=== PATIENT | male | born 1975 ===

== ENCOUNTER 2016-08-09 16:37 | Emergency (ER) | payer BC ==
[2016-08-09 17:00] VITALS: BP 143/82; PULSE 89; TEMP 98; O2SAT 98
--- NOTE | 2016-08-09 17:15 | C.PDOC ---
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 felt like he was anxious and came to ED for a evaluation. Patient currently denies chest pain, SOB, nausea, vomiting, headache or dizziness. 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 Cardiovascular: Negative for: Chest Pain Respiratory: Negative for: Shortness of Breath Gastrointestinal: Negative for: Nausea, Vomiting Neurological: Negative for: Headache, Dizziness Physical Exam - Physical Exam Appears: Non-toxic, No Acute Distress Skin: Warm, Dry Head: Atraumatic, Normacephalic Oral Mucosa: Moist Chest: Symmetrical, No Tenderness Cardiovascular: Rhythm Regular, No Murmur Respiratory: Normal Breath Sounds, No Rales, No Rhonchi, No Stridor, No Wheezing Extremity: Normal ROM, No Swelling Neurological/Psych: Oriented x3, Normal Speech, Normal Motor ED Course And Treatment ECG: Interpreted By Ga ECG Rhythm: Sinus Rhythm ECG Interpretation: No Acute Changes Interpretation Of ECG: No ST/T wave changes. Rate From EC (BPM) O2 Sat by Pulse Oximetry: 98 (RA) Progress Note: Patient denies any blood work or any sort of work up. Medical Decision Making Medical Decision Making: cp s/p "argument" in ICU with loved one. on arrival, pt symptoms free, refusing eval, requsting to be d/c to return with loved. one in ICU Disposition - Disposition Disposition: HOME/ ROUTINE Disposition Time: 18:12 Condition: STABLE Additional Instructions: return to er with worsening symptoms or concerns. Instructions: Chest Pain (ED) - Clinical Impression Clinical Impression: Chest pain - Scribe Statement The provider has reviewed the documentation as recorded by the Angelicaibe Radha Ortiz Provider Attestation: All medical record entries made by the Angelicaibe were at my direction and personally dictated by me. I have reviewed the chart and agree that the record accurately reflects my personal performance of the history, physical exam, medical decision making, and the department course for this patient. I have also personally directed, reviewed, and agree with the discharge instructions and disposition.
[2016-08-09 17:42] VITALS: RESP 18
== END 2016-08-09 17:42 | disposition home or self-care (01) ==
LOC: C.ER 16:37
DX: R07.9 Chest pain, unspecified (principal)

== ENCOUNTER 2017-02-21 19:03 | Emergency (ER) | payer BC ==
[2017-02-21 19:16] VITALS: TEMP 98.2
[2017-02-21] MEDS ORDERED: Lidocaine 2% Inj (20ml) INFIL ONE (19:40)
[2017-02-21] MEDS ORDERED: Bacitracin 500 Units/gm Oint Foilpak UD TOP ONE (19:40)
--- NOTE | 2017-02-21 19:56 | C.PDOC ---
History Of Present Illness 41 y/o male presents to ED for evaluation of cut to 5th right finger sustained this morning. Patient states he was changing his car tire and karla feel cutting his 5th right digit. Patient denies loc, numbness, tingling, other injuries or any other complaints at this time. Time Seen by Provider: 02/21/17 19:36 Chief Complaint (Nursing): Abnormal Skin Integrity History Per: Patient History/Exam Limitations: no limitations Onset/Duration Of Symptoms: Hrs Current Symptoms Are (Timing): Still Present Location Of Injury: Right: Hand Quality Of Symptoms: Painful Past Medical History Reviewed: Historical Data, Nursing Documentation, Vital Signs Vital Signs: Last Vital Signs Temp 98.2 F 02/21/17 19:14 Pulse 65 02/21/17 20:41 Resp 18 02/21/17 20:41 BP 122/72 02/21/17 20:41 Pulse Ox 98 02/21/17 20:41 - Medical History PMH: No Chronic Diseases Surgical History: No Surg Hx Family History: States: No Known Family Hx - Social History Hx Alcohol Use: Yes Hx Substance Use: No - Immunization History Hx Tetanus Toxoid Vaccination: Yes Hx Influenza Vaccination: No Hx Pneumococcal Vaccination: No Review Of Systems Except As Marked, All Systems Reviewed And Found Negative. Musculoskeletal: Positive for: Hand Pain Physical Exam - Physical Exam Appears: Non-toxic, No Acute Distress Skin: Warm, Dry, No Rash Head: Atraumatic, Normacephalic Eye(s): bilateral: Normal Inspection Oral Mucosa: Moist Neck: Normal ROM, Supple Chest: Symmetrical Extremity: Normal ROM, Capillary Refill (<2 seconds), No Deformity, Other (2cm L -shaped lac to distal volar of 5th right finger) Pulses: Left Radial: Normal, Right Radial: Normal Neurological/Psych: Oriented x3, Normal Motor, Normal Sensation ED Course And Treatment O2 Sat by Pulse Oximetry: 100 (RA) Pulse Ox Interpretation: Normal Laceration - Laceration Repair finger laceration Wound Length (In cm): 2 Description Of Wound: Irregular Wound Cleansed With: Betadine, Sterile Saline Anesthesia: Lidocaine 2% Wound Examination: Irrigated With Saline, No FB With Wound Exploration, No Tendon Injury With Wound Exploration Wound Closure: Suture Suture Technique And Material Used: Nylon Wound Complexity: Simple Medical Decision Making Medical Decision Making: Tetanus is up to date. Wound is cleansed with pressurized saline and betadine. Finger splint placed to the finger after suturing. Disposition - Disposition Referrals: [facility] [Outside] Disposition: HOME/ ROUTINE Disposition Time: 20:41 Condition: GOOD Additional Instructions: keep the wound clean dry and covered. Wash the wound with soap and water starting on Sunday then twice a day and then apply bacitracin. Prescriptions: Bacitracin Ointment [Bacitracin] 30 gm TOP BID #1 tube Instructions: Finger Laceration (ED) Forms: [employer] (Hungarian) - Clinical Impression Clinical Impression: Finger laceration - PA / GUEST SERVICES ASSISTANT / Resident Statement MD/DO has reviewed & agrees with the documentation as recorded. - Scribe Statement The provider has reviewed the documentation as recorded by the Angelicaibhollis Pascal All medical record entries made by the Scribhollis were at my direction and personally dictated by me. I have reviewed the chart and agree that the record accurately reflects my personal performance of the history, physical exam, medical decision making, and the department course for this patient. I have also personally directed, reviewed, and agree with the discharge instructions and disposition.
[2017-02-21] MEDS ORDERED: Lidocaine 2% Inj (20ml) ONE (19:58)
[2017-02-21] MEDS ORDERED: Bacitracin 500 Units/gm Oint Foilpak UD ONE (20:02)
[2017-02-21 20:41] VITALS: BP 122/72; PULSE 65; RESP 18
[2017-02-25 15:07] VITALS: O2SAT 100
== END 2017-02-21 20:42 | disposition home or self-care (01) ==
LOC: C.ER 19:03
DX: S61.216A Laceration without foreign body of right little finger without damage to nail, initial encounter (principal); W45.8XXA Other foreign body or object entering through skin, initial encounter